=== PATIENT | male | born 1950 | race Caucasian/White ===

== ENCOUNTER 2023-06-18 05:53 | Day surgery (SDC) | payer MEDICARE, OTHER ==
[2023-06-18] MEDS ORDERED: Lactated Ringers 1,000 ML IV SCH (06:30)
[2023-06-18] MEDS ORDERED: fentaNYL 50 MCG/ML SDV ONE (06:58)
[2023-06-18] MEDS ORDERED: Propofol 200 MG/20 ML SDV ONE (06:58)
[2023-06-18 10:37] VITALS: BP 132/76; PULSE 82
== END 2023-06-18 10:49 | disposition home or self-care (01) ==
LOC: JP.SDS 05:53
PROVIDERS: ATTEND Student in an Organized Health Care Education/Training Program
DX: K29.50 Unspecified chronic gastritis without bleeding (principal); K44.9 Diaphragmatic hernia without obstruction or gangrene; I25.10 Atherosclerotic heart disease of native coronary artery without angina pectoris; J44.9 Chronic obstructive pulmonary disease, unspecified; C34.90 Malignant neoplasm of unspecified part of unspecified bronchus or lung; Z88.8 Allergy status to other drugs, medicaments and biological substances
CPT/HCPCS: 43239; 76705; J2704; J3010; J7120

== ENCOUNTER 2023-06-24 20:37 | Emergency (ER) | payer MEDICARE, OTHER ==
[2023-06-24 22:33] VITALS: BP 130/70; PULSE 77
== END 2023-06-24 23:13 | disposition home or self-care (01) ==
LOC: JP.ED 20:37
DX: K59.04 Chronic idiopathic constipation (principal); I25.10 Atherosclerotic heart disease of native coronary artery without angina pectoris; I25.2 Old myocardial infarction; Z79.899 Other long term (current) drug therapy; Z79.82 Long term (current) use of aspirin
CPT/HCPCS: 74018; 74018-26; 99284

== ENCOUNTER 2023-08-26 07:22 | Emergency (ER) | payer MEDICARE, OTHER ==
[2023-08-26] MEDS ORDERED: Albuterol 0.083% 2.5 MG/3 ML Neb Soln NEB ONE (08:10)
[2023-08-26 08:20] LABS: BASOPHILS ABSOLUTE AUTO 0.05 K/uL (0.00-0.10); BASOPHILS PERCENT AUTO 0.4 % (0.1-1.3); CREATININE 0.9 mg/dL (0.7-1.3); EOSINOPHILS ABSOLUTE AUTO 0.04 K/uL (0.00-0.40); EOSINOPHILS PERCENT AUTO 0.4 % (0.0-5.4); EST CRCL DRUG DOSING (CG) 69.58 mL/min; HEMOGLOBIN 11.9 g/dL (12.9-16.9); IMMATURE GRAN ABSOLUTE AUTO 0.07 K/uL (0.00-0.23); IMMATURE GRAN PERCENT AUTO 0.6 % (0.0-0.7); LYMPHOCYTES ABSOLUTE AUTO 0.48 K/uL (0.8-3.3); LYMPHOCYTES PERCENT AUTO 4.2 % (11.4-47.7); MEAN CORPUSCULAR HEMOGLOBIN 32.2 pg (31.6-35.5); MEAN CORPUSCULAR HGB CONC 33.1 g/dL (31.6-35.5); MEAN CORPUSCULAR VOLUME 97.3 fL (81.4-99.0); MONOCYTES ABSOLUTE AUTO 1.19 K/uL (0.20-0.90); MONOCYTES PERCENT AUTO 10.5 % (3.3-12.6); NEUTROPHILS ABSOLUTE AUTO 9.53 K/uL (1.0-7.6); NEUTROPHILS PERCENT AUTO 83.9 % (40.0-78.1); PLATELET COUNT,PLT 152 K/uL (130-375); WHITE BLOOD CELL COUNT,WBC 11.4 K/uL (3.2-11.0)
[2023-08-26] MEDS ORDERED: Iopamidol 755 Mg/ML 100 ML Bottle IV SCH (08:30)
[2023-08-26] MEDS ORDERED: Sodium Chloride 0.9% 10 ML Syringe FLUSH ONE (08:30)
[2023-08-26] MEDS ORDERED: Sodium Chloride 0.9% 100 ML IV SCH (08:30)
[2023-08-26 08:46] LABS: CALCIUM 8.3 mg/dL (8.5-10.1); POTASSIUM,K 4.5 mmol/L (3.6-5.2)
[2023-08-26 08:47] LABS: ANION GAP 12.5 mmol/L (5.0-14.0)
[2023-08-26 13:00] VITALS: BP 127/82; PULSE 110
== END 2023-08-26 13:22 | disposition home or self-care (01) ==
LOC: JP.ED 07:22
DX: J18.9 Pneumonia, unspecified organism (principal); J44.9 Chronic obstructive pulmonary disease, unspecified; I25.2 Old myocardial infarction; K21.9 Gastro-esophageal reflux disease without esophagitis; I25.10 Atherosclerotic heart disease of native coronary artery without angina pectoris; Z86.16 Personal history of COVID-19; Z88.8 Allergy status to other drugs, medicaments and biological substances; Z79.01 Long term (current) use of anticoagulants; Z95.5 Presence of coronary angioplasty implant and graft; Z87.891 Personal history of nicotine dependence; Z79.82 Long term (current) use of aspirin; Z79.899 Other long term (current) drug therapy
CPT/HCPCS: 36415; 71275; 74018; 80048; 83605; 84484; 85025; 94640; 99285; J3490; Q9967

== ENCOUNTER 2023-10-02 19:10 | Inpatient (IN) | payer MEDICARE, OTHER ==
[2023-10-02] MEDS ORDERED: Meropenem 1 GM in Sodium Chloride 0.9% 100 ML IV SCH (20:45)
[2023-10-02 20:55] LABS: BASOPHILS PERCENT AUTO 0.2 % (0.1-1.3); EOSINOPHILS PERCENT AUTO 0.2 % (0.0-5.4); HEMATOCRIT 33.5 % (38.4-49.7); HEMOGLOBIN 11.2 g/dL (12.9-16.9); IMMATURE GRAN ABSOLUTE AUTO 0.08 K/uL (0.00-0.23); IMMATURE GRAN PERCENT AUTO 1.9 % (0.0-0.7); LYMPHOCYTES ABSOLUTE AUTO 0.22 K/uL (0.8-3.3); LYMPHOCYTES PERCENT AUTO 5.3 % (11.4-47.7); MEAN CORPUSCULAR HGB CONC 33.4 g/dL (31.6-35.5); MEAN CORPUSCULAR VOLUME 95.7 fL (81.4-99.0); MONOCYTES ABSOLUTE AUTO 0.26 K/uL (0.20-0.90); MONOCYTES PERCENT AUTO 6.3 % (3.3-12.6); NEUTROPHILS ABSOLUTE AUTO 3.56 K/uL (1.0-7.6); NEUTROPHILS PERCENT AUTO 86.1 % (40.0-78.1); PLATELET COUNT,PLT 39 K/uL (130-375); WHITE BLOOD CELL COUNT,WBC 4.1 K/uL (3.2-11.0)
[2023-10-02] MEDS ORDERED: Vancomycin 1 GM SDV IV SCH ×2 (21:00)
[2023-10-02] MEDS: Sodium Chloride 0.9% 1,000 ML IV SCH (21:00)
[2023-10-02] MEDS ORDERED: Meropenem 1 GM in Sodium Chloride 0.9% 100 ML IV ONE (21:00)
[2023-10-02 21:03] LABS: BASOPHILS ABSOLUTE AUTO 0.01 K/uL (0.00-0.10); EOSINOPHILS ABSOLUTE AUTO 0.01 K/uL (0.00-0.40)
[2023-10-02 21:16] LABS: A/G RATIO 0.6 (1.2-2.2); ALANINE AMINOTRANSFERASE,ALT 31 U/L (12-78); ALBUMIN 2.5 g/dL (3.4-5.0); ALKALINE PHOSPHATASE 97 U/L (46-116); ANION GAP 12.8 mmol/L (5.0-14.0); ASPARTATE AMNIOTRANSFERASE,AST 20 U/L (15-37); BILIRUBIN TOTAL 1.2 mg/dL (0.2-1.0); BLOOD UREA NITROGEN,BUN 15 mg/dL (7-18); CALCIUM 8.1 mg/dL (8.5-10.1); CARBON DIOXIDE,CO2 26 mmol/L (21-32); CHLORIDE,CL 101 mmol/L (100-108); EST CRCL DRUG DOSING (CG) 62.18 mL/min; ESTIMATED GFR 81 mL/min (>60); GLUCOSE RANDOM 218 mg/dL (74-106); MAGNESIUM 1.5 mg/dL (1.8-2.4); POTASSIUM,K 3.8 mmol/L (3.6-5.2); PROTEIN TOTAL,TP 6.4 g/dL (6.4-8.2); SODIUM,NA 136 mmol/L (140-148)
[2023-10-02] MEDS ORDERED: Acetaminophen 1,000 MG in Premix Bag 1 BAG IV ONE (21:17)
[2023-10-02 21:22] LABS: APPEARANCE,URINE CLEAR (CLEAR); BILIRUBIN,URINE NEGATIVE (NEGATIVE); COLOR,URINE YELLOW (YELLOW); GLUCOSE,URINE NEGATIVE (NEGATIVE); KETONES,URINE NEGATIVE (NEGATIVE); LEUKOCYTE ESTERASE,URINE NEGATIVE (NEGATIVE); NITRITE,URINE NEGATIVE (NEGATIVE); OCCULT BLOOD,URINE NEGATIVE (NEGATIVE); PROTEIN,URINE 100 mg/dL (NEGATIVE)
[2023-10-02 21:24] LABS: CORONAVIRUS COVID-19 NAA NEGATIVE (NEGATIVE); INFLUENZA A NAA NEGATIVE (NEGATIVE); INFLUENZA B NAA NEGATIVE (NEGATIVE); RESPIRATORY SYNCYTIAL VIR NAA NEGATIVE (NEGATIVE)
[2023-10-02 21:31] LABS: AMORPHOUS SEDIMENT,URINE MODERATE; BACTERIA,URINE FEW; EPITHELIAL CELLS,URINE FEW; MUCUS,URINE RARE; RBC,URINE 0-5 (0-5)
[2023-10-02] MEDS ORDERED: Sodium Chloride 0.9% 10 ML ONE (22:24)
[2023-10-02] MEDS ORDERED: Acetaminophen 325 MG Tab PO PRN (22:40)
[2023-10-02] MEDS ORDERED: Docusate Sodium 100 MG Cap PO PRN (22:40)
[2023-10-02] MEDS ORDERED: Bisacodyl 5 MG Tab PO PRN (22:40)
[2023-10-02] MEDS ORDERED: Ondansetron 4 MG/2 ML SDV IV PRN (22:40)
[2023-10-02] MEDS ORDERED: Ondansetron 4 MG Tab.DIS PO PRN (22:40)
[2023-10-02] MEDS ORDERED: Albuterol 0.083% 2.5 MG/3 ML Neb Soln INH PRN (22:56)
[2023-10-02] MEDS ORDERED: Bisacodyl 10 MG Supp RECTAL PRN (22:56)
[2023-10-02] MEDS ORDERED: Psyllium Husk Powder Sugar Free 5.85 GM Packet PO PRN (22:56)
[2023-10-02] MEDS ORDERED: Magnesium Sulfate/Water 2 GM in Premix Bag 1 BAG IV ONE (22:59)
[2023-10-02] MEDS ORDERED: Budesonide 0.5 MG/2 ML Neb Susp NEB SCH (23:00)
[2023-10-02] MEDS: oxyCODONE 5 MG Tab PO PRN (23:44)
[2023-10-02] MEDS: Pantoprazole 40 MG Vial IV SCH (23:45)
[2023-10-03] MEDS: Meropenem 1 GM in Sodium Chloride 0.9% 100 ML IV SCH ×2 (05:25→14:32)
[2023-10-03] MEDS: Acetaminophen 500 MG Tab PO PRN ×3 (05:29→22:31)
[2023-10-03] MEDS: Budesonide 0.5 MG/2 ML Neb Susp NEB SCH ×2 (07:46→20:06)
[2023-10-03] MEDS: Arformoterol 15 MCG/2 ML Neb Soln NEB SCH ×2 (07:46→20:01)
[2023-10-03] MEDS: Insulin Lispro 100 Unit/ML 3 ML KwikPen SUBCUT SCH ×4 (07:52→20:09)
[2023-10-03] MEDS: Aspirin 81 MG Tab.EC PO SCH (08:09)
[2023-10-03] MEDS: Cholecalciferol (Vitamin D3) 25 MCG Tab PO SCH (08:09)
[2023-10-03] MEDS: Pantoprazole 40 MG Vial IV SCH (08:13)
[2023-10-03] MEDS: Metoprolol Succinate 25 MG Tab.ER PO SCH (08:25)
[2023-10-03 08:51] LABS: EOSINOPHILS ABSOLUTE AUTO 0.03 K/uL (0.00-0.40); EOSINOPHILS PERCENT AUTO 0.7 % (0.0-5.4); HEMATOCRIT 28.9 % (38.4-49.7); HEMOGLOBIN 9.4 g/dL (12.9-16.9); IMMATURE GRAN ABSOLUTE AUTO 0.03 K/uL (0.00-0.23); IMMATURE GRAN PERCENT AUTO 0.7 % (0.0-0.7); LYMPHOCYTES ABSOLUTE AUTO 0.51 K/uL (0.8-3.3); LYMPHOCYTES PERCENT AUTO 11.5 % (11.4-47.7); MEAN CORPUSCULAR HEMOGLOBIN 32.1 pg (31.6-35.5); MEAN CORPUSCULAR HGB CONC 32.5 g/dL (31.6-35.5); MEAN CORPUSCULAR VOLUME 98.6 fL (81.4-99.0); MONOCYTES ABSOLUTE AUTO 0.57 K/uL (0.20-0.90); MONOCYTES PERCENT AUTO 12.8 % (3.3-12.6); NEUTROPHILS PERCENT AUTO 74.3 % (40.0-78.1); PLATELET COUNT,PLT 37 K/uL (130-375); RED BLOOD CELL COUNT 2.93 M/uL (4.14-5.76); WHITE BLOOD CELL COUNT,WBC 4.4 K/uL (3.2-11.0)
[2023-10-03] MEDS ORDERED: Baclofen 10 MG Tab PO SCH (09:00)
[2023-10-03] MEDS ORDERED: Baclofen 10 MG Tab PO PRN (09:00)
[2023-10-03 09:10] LABS: A/G RATIO 0.6 (1.2-2.2); ALANINE AMINOTRANSFERASE,ALT 24 U/L (12-78); ALKALINE PHOSPHATASE 73 U/L (46-116); ASPARTATE AMNIOTRANSFERASE,AST 17 U/L (15-37); BILIRUBIN TOTAL 1.1 mg/dL (0.2-1.0); BLOOD UREA NITROGEN,BUN 15 mg/dL (7-18); CALCIUM 7.2 mg/dL (8.5-10.1); CARBON DIOXIDE,CO2 27 mmol/L (21-32); CHLORIDE,CL 103 mmol/L (100-108); CREATININE 1.1 mg/dL (0.8-1.3); EST CRCL DRUG DOSING (CG) 54.44 mL/min; ESTIMATED GFR 72 mL/min (>60); GLUCOSE RANDOM 221 mg/dL (74-106); POTASSIUM,K 3.7 mmol/L (3.6-5.2); PROTEIN TOTAL,TP 5.3 g/dL (6.4-8.2); SODIUM,NA 137 mmol/L (140-148)
[2023-10-03 09:12] LABS: ANION GAP 10.7 mmol/L (5.0-14.0)
[2023-10-03] MEDS: Sodium Chloride 0.9% 1,000 ML IV SCH ×2 (09:44→20:18)
[2023-10-03] MEDS ORDERED: Magnesium Sulfate/Water 2 GM in Premix Bag 1 BAG IV ONE (10:30)
[2023-10-03] MEDS: Piperacillin/Tazobactam/Dext 3.375 GM in Premix Bag 1 BAG IV SCH ×2 (13:47→20:06)
[2023-10-03] MEDS: Fluticasone NASAL Spray 16 GM Bottle NASBOTH SCH (20:01)
[2023-10-03] MEDS: Rosuvastatin 10 MG Tab PO SCH (20:03)
[2023-10-03] MEDS: LORazepam 0.5 MG Tab PO SCH (20:08)
[2023-10-04] MEDS: Piperacillin/Tazobactam/Dext 3.375 GM in Premix Bag 1 BAG IV SCH ×4 (01:44→20:37)
[2023-10-04 05:14] LABS: BASOPHILS PERCENT AUTO 0.4 % (0.1-1.3); EOSINOPHILS ABSOLUTE AUTO 0.04 K/uL (0.00-0.40); EOSINOPHILS PERCENT AUTO 1.6 % (0.0-5.4); HEMATOCRIT 26.9 % (38.4-49.7); HEMOGLOBIN 8.7 g/dL (12.9-16.9); IMMATURE GRAN PERCENT AUTO 0.4 % (0.0-0.7); LYMPHOCYTES ABSOLUTE AUTO 0.51 K/uL (0.8-3.3); LYMPHOCYTES PERCENT AUTO 20.5 % (11.4-47.7); MEAN CORPUSCULAR HGB CONC 32.3 g/dL (31.6-35.5); MEAN CORPUSCULAR VOLUME 98.9 fL (81.4-99.0); MONOCYTES ABSOLUTE AUTO 0.41 K/uL (0.20-0.90); MONOCYTES PERCENT AUTO 16.5 % (3.3-12.6); NEUTROPHILS ABSOLUTE AUTO 1.51 K/uL (1.0-7.6); NEUTROPHILS PERCENT AUTO 60.6 % (40.0-78.1); PLATELET COUNT,PLT 35 K/uL (130-375); RED BLOOD CELL COUNT 2.72 M/uL (4.14-5.76); WHITE BLOOD CELL COUNT,WBC 2.5 K/uL (3.2-11.0)
[2023-10-04 05:19] LABS: BASOPHILS ABSOLUTE AUTO 0.01 K/uL (0.00-0.10); IMMATURE GRAN ABSOLUTE AUTO 0.01 K/uL (0.00-0.23)
[2023-10-04 05:40] LABS: C-REACTIVE PROTEIN 4.41 mg/dL (<0.50); CALCIUM 7.1 mg/dL (8.5-10.1); CREATININE 0.9 mg/dL (0.8-1.3); EST CRCL DRUG DOSING (CG) 66.54 mL/min
[2023-10-04] MEDS: Arformoterol 15 MCG/2 ML Neb Soln NEB SCH ×2 (07:02→20:45)
[2023-10-04] MEDS: Budesonide 0.5 MG/2 ML Neb Susp NEB SCH ×2 (07:02→20:45)
[2023-10-04] MEDS: Insulin Lispro 100 Unit/ML 3 ML KwikPen SUBCUT SCH ×4 (07:41→21:19)
[2023-10-04] MEDS: Pantoprazole 40 MG Vial IV SCH (08:17)
[2023-10-04] MEDS: Cholecalciferol (Vitamin D3) 25 MCG Tab PO SCH (08:17)
[2023-10-04] MEDS: Metoprolol Succinate 25 MG Tab.ER PO SCH (08:17)
[2023-10-04] MEDS: Aspirin 81 MG Tab.EC PO SCH (08:17)
[2023-10-04] MEDS: Acetaminophen 500 MG Tab PO PRN ×2 (09:23→21:11)
[2023-10-04] MEDS: oxyCODONE 5 MG Tab PO PRN (14:29)
[2023-10-04] MEDS: Fluticasone NASAL Spray 16 GM Bottle NASBOTH SCH (21:03)
[2023-10-04] MEDS: LORazepam 0.5 MG Tab PO SCH (21:03)
[2023-10-04] MEDS: Rosuvastatin 10 MG Tab PO SCH (21:03)
[2023-10-05] MEDS: Piperacillin/Tazobactam/Dext 3.375 GM in Premix Bag 1 BAG IV SCH ×2 (02:59→08:04)
[2023-10-05] MEDS: Budesonide 0.5 MG/2 ML Neb Susp NEB SCH (06:59)
[2023-10-05] MEDS: Arformoterol 15 MCG/2 ML Neb Soln NEB SCH (06:59)
[2023-10-05] MEDS ORDERED: Pantoprazole 40 MG Tab.CR PO SCH (07:30)
[2023-10-05] MEDS: Insulin Lispro 100 Unit/ML 3 ML KwikPen SUBCUT SCH (07:53)
[2023-10-05] MEDS ORDERED: Levofloxacin 250 MG Tab PO SCH (08:15)
[2023-10-05 08:26] LABS: BASOPHILS PERCENT AUTO 0.2 % (0.1-1.3); EOSINOPHILS ABSOLUTE AUTO 0.06 K/uL (0.00-0.40); EOSINOPHILS PERCENT AUTO 1.3 % (0.0-5.4); HEMATOCRIT 31.9 % (38.4-49.7); HEMOGLOBIN 10.4 g/dL (12.9-16.9); IMMATURE GRAN PERCENT AUTO 0.4 % (0.0-0.7); LYMPHOCYTES ABSOLUTE AUTO 0.82 K/uL (0.8-3.3); LYMPHOCYTES PERCENT AUTO 17.8 % (11.4-47.7); MEAN CORPUSCULAR HEMOGLOBIN 32.2 pg (31.6-35.5); MEAN CORPUSCULAR HGB CONC 32.6 g/dL (31.6-35.5); MEAN CORPUSCULAR VOLUME 98.8 fL (81.4-99.0); MONOCYTES ABSOLUTE AUTO 0.58 K/uL (0.20-0.90); MONOCYTES PERCENT AUTO 12.6 % (3.3-12.6); NEUTROPHILS ABSOLUTE AUTO 3.12 K/uL (1.0-7.6); NEUTROPHILS PERCENT AUTO 67.7 % (40.0-78.1); PLATELET COUNT,PLT 88 K/uL (130-375); RED BLOOD CELL COUNT 3.23 M/uL (4.14-5.76); WHITE BLOOD CELL COUNT,WBC 4.6 K/uL (3.2-11.0)
[2023-10-05 08:30] LABS: BASOPHILS ABSOLUTE AUTO 0.01 K/uL (0.00-0.10); IMMATURE GRAN ABSOLUTE AUTO 0.02 K/uL (0.00-0.23)
[2023-10-05 08:55] LABS: A/G RATIO 0.6 (1.2-2.2); ALANINE AMINOTRANSFERASE,ALT 25 U/L (12-78); ALBUMIN 2.2 g/dL (3.4-5.0); ALKALINE PHOSPHATASE 73 U/L (46-116); ANION GAP 6.3 mmol/L (5.0-14.0); ASPARTATE AMNIOTRANSFERASE,AST 16 U/L (15-37); BILIRUBIN TOTAL 0.7 mg/dL (0.2-1.0); BLOOD UREA NITROGEN,BUN 8 mg/dL (7-18); CALCIUM 7.6 mg/dL (8.5-10.1); CARBON DIOXIDE,CO2 30 mmol/L (21-32); CHLORIDE,CL 106 mmol/L (100-108); CREATININE 0.9 mg/dL (0.8-1.3); EST CRCL DRUG DOSING (CG) 72.48 mL/min; ESTIMATED GFR 92 mL/min (>60); GLUCOSE RANDOM 154 mg/dL (74-106); POTASSIUM,K 4.1 mmol/L (3.6-5.2); PROTEIN TOTAL,TP 5.9 g/dL (6.4-8.2); SODIUM,NA 142 mmol/L (140-148)
[2023-10-05] MEDS: Aspirin 81 MG Tab.EC PO SCH (09:22)
[2023-10-05] MEDS: Metoprolol Succinate 25 MG Tab.ER PO SCH (09:22)
[2023-10-05] MEDS: Cholecalciferol (Vitamin D3) 25 MCG Tab PO SCH (09:24)
[2023-10-05 09:35] VITALS: BP 117/81; PULSE 86
[2023-10-08] MEDS ORDERED: Alendronate 70 MG Tab PO SCH (06:00)
== END 2023-10-05 11:59 | disposition home or self-care (01) | DRG 872 ==
LOC: JP.ED 19:10 → JP.MS 20:40
PROVIDERS: ADMIT Nurse Practitioner; ATTEND Hospitalist
PROC: 3E03329 Introduction of Other Anti-infective into Peripheral Vein, Percutaneous Approach (ICD-10-PCS; principal; 2023-10-02)
PROC: 0T9B70Z Drainage of Bladder with Drainage Device, Via Natural or Artificial Opening (ICD-10-PCS; 2023-10-02)
DX: A41.4 Sepsis due to anaerobes (principal); C34.90 Malignant neoplasm of unspecified part of unspecified bronchus or lung; C78.7 Secondary malignant neoplasm of liver and intrahepatic bile duct; Q89.3 Situs inversus; C77.9 Secondary and unspecified malignant neoplasm of lymph node, unspecified; C25.9 Malignant neoplasm of pancreas, unspecified; Z66 Do not resuscitate; I25.10 Atherosclerotic heart disease of native coronary artery without angina pectoris; J44.9 Chronic obstructive pulmonary disease, unspecified; K21.9 Gastro-esophageal reflux disease without esophagitis; G62.9 Polyneuropathy, unspecified; N31.9 Neuromuscular dysfunction of bladder, unspecified; R26.9 Unspecified abnormalities of gait and mobility; Z86.16 Personal history of COVID-19; Z11.52 Encounter for screening for COVID-19; Z90.2 Acquired absence of lung [part of]; Z88.8 Allergy status to other drugs, medicaments and biological substances; Z79.82 Long term (current) use of aspirin; Z79.899 Other long term (current) drug therapy; Z79.51 Long term (current) use of inhaled steroids; I25.2 Old myocardial infarction; Z86.010 Personal history of colon polyps; Z95.5 Presence of coronary angioplasty implant and graft; Z98.890 Other specified postprocedural states; Z87.891 Personal history of nicotine dependence; Z97.8 Presence of other specified devices; Z86.718 Personal history of other venous thrombosis and embolism
CPT/HCPCS: 0241U; 36415; 51702; 71046; 80048; 80053; 80202; 81001; 82150; 82947; 83605; 83690; 83735; 85025; 86140; 87040; 87077; 87186; 94640; 97161; 97530; 99285; A9270-GY; C9113; J1815; J2185; J2405; J2543; J3370; J3475; J3490; J7030; J7050; J7605

== ENCOUNTER 2023-10-14 12:01 | Emergency (ER) | payer MEDICARE, OTHER ==
[2023-10-14 13:24] LABS: BASOPHILS ABSOLUTE AUTO 0.04 K/uL (0.00-0.10); BASOPHILS PERCENT AUTO 0.5 % (0.1-1.3); EOSINOPHILS ABSOLUTE AUTO 0.06 K/uL (0.00-0.40); EOSINOPHILS PERCENT AUTO 0.8 % (0.0-5.4); HEMATOCRIT 33.6 % (38.4-49.7); HEMOGLOBIN 10.9 g/dL (12.9-16.9); IMMATURE GRAN ABSOLUTE AUTO 0.08 K/uL (0.00-0.23); IMMATURE GRAN PERCENT AUTO 1.1 % (0.0-0.7); LYMPHOCYTES ABSOLUTE AUTO 0.59 K/uL (0.8-3.3); MEAN CORPUSCULAR HEMOGLOBIN 32.1 pg (31.6-35.5); MEAN CORPUSCULAR HGB CONC 32.4 g/dL (31.6-35.5); MEAN CORPUSCULAR VOLUME 98.8 fL (81.4-99.0); MONOCYTES PERCENT AUTO 5.4 % (3.3-12.6); NEUTROPHILS ABSOLUTE AUTO 6.22 K/uL (1.0-7.6); NEUTROPHILS PERCENT AUTO 84.2 % (40.0-78.1); PLATELET COUNT,PLT 344 K/uL (130-375); WHITE BLOOD CELL COUNT,WBC 7.4 K/uL (3.2-11.0)
[2023-10-14 13:44] LABS: A/G RATIO 0.6 (1.2-2.2); ALANINE AMINOTRANSFERASE,ALT 38 U/L (12-78); ALBUMIN 2.5 g/dL (3.4-5.0); ALKALINE PHOSPHATASE 143 U/L (46-116); ANION GAP 7.7 mmol/L (5.0-14.0); ASPARTATE AMNIOTRANSFERASE,AST 17 U/L (15-37); BILIRUBIN TOTAL 1.3 mg/dL (0.2-1.0); BLOOD UREA NITROGEN,BUN 13 mg/dL (7-18); CALCIUM 7.9 mg/dL (8.5-10.1); CARBON DIOXIDE,CO2 31 mmol/L (21-32); CHLORIDE,CL 101 mmol/L (100-108); CREATININE 0.9 mg/dL (0.8-1.3); EST CRCL DRUG DOSING (CG) 69.58 mL/min; ESTIMATED GFR 92 mL/min (>60); GLUCOSE RANDOM 119 mg/dL (74-106); POTASSIUM,K 3.7 mmol/L (3.6-5.2); PROTEIN TOTAL,TP 6.5 g/dL (6.4-8.2); SODIUM,NA 136 mmol/L (140-148)
[2023-10-14 14:37] VITALS: BP 136/76; PULSE 83
[2023-10-14] MEDS: Sodium Chloride 0.9% 1,000 ML IV SCH (14:41)
[2023-10-14] MEDS: Meropenem 1 GM in Sodium Chloride 0.9% 100 ML IV ONE (14:58)
[2023-10-14 15:36] LABS: BILIRUBIN,URINE NEGATIVE (NEGATIVE); COLOR,URINE YELLOW (YELLOW); GLUCOSE,URINE NEGATIVE (NEGATIVE); KETONES,URINE NEGATIVE (NEGATIVE); LEUKOCYTE ESTERASE,URINE TRACE (NEGATIVE); NITRITE,URINE NEGATIVE (NEGATIVE); OCCULT BLOOD,URINE MODERATE (NEGATIVE); PH,URINE 7.5 (5.0-8.0); PROTEIN,URINE 100 mg/dL (NEGATIVE)
[2023-10-14 15:45] LABS: AMORPHOUS SEDIMENT,URINE NOT SEEN; APPEARANCE,URINE CLOUDY (CLEAR); BACTERIA,URINE MODERATE; EPITHELIAL CELLS,URINE MODERATE; MUCUS,URINE MODERATE; RBC,URINE 20-30 (0-5)
== END 2023-10-14 16:27 | disposition home or self-care (01) ==
LOC: JP.ED 12:01
DX: L03.115 Cellulitis of right lower limb (principal); C25.9 Malignant neoplasm of pancreas, unspecified; I25.2 Old myocardial infarction; I25.10 Atherosclerotic heart disease of native coronary artery without angina pectoris; J44.9 Chronic obstructive pulmonary disease, unspecified; K21.9 Gastro-esophageal reflux disease without esophagitis; Z88.8 Allergy status to other drugs, medicaments and biological substances; Z79.899 Other long term (current) drug therapy; Z86.16 Personal history of COVID-19
CPT/HCPCS: 36415; 80053; 81001; 83605; 85025; 85379; 87040; 87086; 87088; 87186; 93970; 96361; 96365; 99284; C1758; J2185; J3490; J7030

== ENCOUNTER 2023-10-15 07:56 | Emergency (ER) | payer MEDICARE, OTHER ==
[2023-10-15 08:20] VITALS: BP 120/58; PULSE 106
[2023-10-15 08:50] LABS: BASOPHILS ABSOLUTE AUTO 0.03 K/uL (0.00-0.10); BASOPHILS PERCENT AUTO 0.5 % (0.1-1.3); EOSINOPHILS PERCENT AUTO 0.3 % (0.0-5.4); HEMATOCRIT 30.1 % (38.4-49.7); HEMOGLOBIN 9.8 g/dL (12.9-16.9); IMMATURE GRAN ABSOLUTE AUTO 0.11 K/uL (0.00-0.23); IMMATURE GRAN PERCENT AUTO 1.9 % (0.0-0.7); LYMPHOCYTES ABSOLUTE AUTO 0.45 K/uL (0.8-3.3); LYMPHOCYTES PERCENT AUTO 7.8 % (11.4-47.7); MEAN CORPUSCULAR HEMOGLOBIN 32.3 pg (31.6-35.5); MEAN CORPUSCULAR HGB CONC 32.6 g/dL (31.6-35.5); MEAN CORPUSCULAR VOLUME 99.3 fL (81.4-99.0); MONOCYTES ABSOLUTE AUTO 0.75 K/uL (0.20-0.90); NEUTROPHILS PERCENT AUTO 76.5 % (40.0-78.1); PLATELET COUNT,PLT 265 K/uL (130-375); RED BLOOD CELL COUNT 3.03 M/uL (4.14-5.76); WHITE BLOOD CELL COUNT,WBC 5.8 K/uL (3.2-11.0)
[2023-10-15 08:56] LABS: EOSINOPHILS ABSOLUTE AUTO 0.02 K/uL (0.00-0.40)
[2023-10-15] MEDS: Meropenem 1 GM in Sodium Chloride 0.9% 100 ML IV ONE (09:49)
== END 2023-10-15 11:07 | disposition home or self-care (01) ==
LOC: JP.ED 07:56
DX: L03.116 Cellulitis of left lower limb (principal); B96.1 Klebsiella pneumoniae [K. pneumoniae] as the cause of diseases classified elsewhere; D84.821 Immunodeficiency due to drugs; T45.1X5A Adverse effect of antineoplastic and immunosuppressive drugs, initial encounter; D64.9 Anemia, unspecified; I10 Essential (primary) hypertension; I25.10 Atherosclerotic heart disease of native coronary artery without angina pectoris; I25.2 Old myocardial infarction; J44.9 Chronic obstructive pulmonary disease, unspecified; K21.9 Gastro-esophageal reflux disease without esophagitis; Z86.16 Personal history of COVID-19; Z79.82 Long term (current) use of aspirin; Z88.8 Allergy status to other drugs, medicaments and biological substances; Z88.1 Allergy status to other antibiotic agents; Z79.899 Other long term (current) drug therapy
CPT/HCPCS: 36415; 85025; 86140; 96365; 99283; J2185; J3490